=== PATIENT | female | born 1955 | race Two or more races ===

== ENCOUNTER 2020-07-02 11:45 | Inpatient (IN) | payer OTHER ==
[~2020-07-02] VITALS: Ht 182.9 cm; Wt 5.0 kg
[2020-07-02] MEDS ORDERED: FOSAMAX70 MG (15:03)
[2020-07-02] MEDS ORDERED: SYNTHROID100 MCG (15:03)
[2020-07-02] MEDS ORDERED: NAPROXEN SODIU550 MG (15:03)
[2020-07-02] MEDS ORDERED: ZESTRIL20 MG (15:03)
[2020-07-02] MEDS ORDERED: SINVASTATIN (15:03)
[2020-07-02] MEDS ORDERED: [UNRECOGNIZED DRUG - OTHER] (15:04)
[2020-07-02] MEDS ORDERED: CALCIUM + D SO1 EACH (15:04)
[2020-07-02] MEDS ORDERED: SLOW RELEASE I160 M1 (15:05)
[2020-07-07] MEDS ORDERED: ZOCOR40 MG (07:57)
[2020-07-07] MEDS ORDERED: CYANOCOBAL1000 MCG/1 (08:00)
== END 2020-07-11 13:30 | disposition home or self-care (01) | DRG 331 ==
LOC: SURH 07-06 16:35
PROVIDERS: Colon & Rectal Surgery; ADMIT Internal Medicine Geriatric Medicine; ATTEND Internal Medicine Geriatric Medicine
PROC: 0DBN4ZZ Excision of Sigmoid Colon, Percutaneous Endoscopic Approach (ICD-10-PCS; 2020-07-07)
PROC: 30233N1 Transfusion of Nonautologous Red Blood Cells into Peripheral Vein, Percutaneous Approach (ICD-10-PCS; 2020-07-07)
PROC: 0DJD8ZZ Inspection of Lower Intestinal Tract, Via Natural or Artificial Opening Endoscopic (ICD-10-PCS; 2020-07-07)
PROC: 07BC4ZX Excision of Pelvis Lymphatic, Percutaneous Endoscopic Approach, Diagnostic (ICD-10-PCS; 2020-07-08)
PROC: 0DTP4ZZ Resection of Rectum, Percutaneous Endoscopic Approach (ICD-10-PCS; principal; 2020-07-08 23:15)
DX: C19 Malignant neoplasm of rectosigmoid junction (principal); D50.0 Iron deficiency anemia secondary to blood loss (chronic); E03.9 Hypothyroidism, unspecified; I11.9 Hypertensive heart disease without heart failure; E87.6 Hypokalemia

== ENCOUNTER 2020-07-23 12:56 | Emergency (ER) | payer OTHER ==
[~2020-07-23] VITALS: Ht 167.6 cm; Wt 81.6 kg
[~2020-07-23 12:56] MED LIST: CALCIUM + D SO1 EACH; CYANOCOBAL1000 MCG/1; FOSAMAX70 MG; NAPROXEN SODIU550 MG; SINVASTATIN; SLOW RELEASE I160 M1; SYNTHROID100 MCG; ZESTRIL20 MG; ZOCOR40 MG; [UNRECOGNIZED DRUG - OTHER]
== END 2020-07-23 15:24 | disposition home or self-care (01) ==
LOC: ER 12:56
DX: R10.31 Right lower quadrant pain (principal); G89.18 Other acute postprocedural pain

== ENCOUNTER 2020-09-23 07:20 | Day surgery (SDC) | payer OTHER | END 2020-09-23 15:30 | disposition home or self-care (01) | LOC: CIR.AMB 07:20 | PROVIDERS: ATTEND Colon & Rectal Surgery | DX: C20 Malignant neoplasm of rectum (principal); Z20.828 Contact with and (suspected) exposure to other viral communicable diseases | CPT/HCPCS: 36561; C1751 ==